=== PATIENT | female | born 1975 | race Caucasian/White ===

== ENCOUNTER 2017-09-08 14:44 | Emergency (ER) | payer MEDICAID, OTHER ==
[2017-09-08 14:55] VITALS: BP 131/83
--- NOTE | 2017-09-08 15:17 | ED Physician Documentation ---
PD HPI URI - Stated complaint Stated Complaint: COUGH/R EAR PX - Chief complaint Chief Complaint: Heent - History obtained from History obtained from: Patient - History of Present Illness Timing - onset: Today (has had some URI symptoms for the past 1-2 weeks, but with right ear pain abruptly today.) Timing duration: Days (1 day of the ear pain.) Timing details: Abrupt onset, Still present Associated symptoms: Ear pain (today), Nasal congestion (for 1-2 weeks), Rhinorrhea, Dry cough Contributing factors: No: Sick contact, Travel, Immunocompromised Similar symptoms before: Has not had sx before Recently seen: Not recently seen Review of Systems Constitutional: reports: Myalgias. denies: Fever, Chills, Fatigue Ears: reports: Loss of hearing, Ear pain. denies: Drainage/discharge, Tinnitus/ ringing Nose: reports: Rhinorrhea / runny nose, Congestion Throat: denies: Sore throat Respiratory: reports: Cough GI: denies: Nausea, Vomiting Skin: denies: Rash, Lesions Neurologic: denies: Focal weakness, Numbness, Altered mental status, Headache PD PAST MEDICAL HISTORY - Past Medical History Cardiovascular: None Respiratory: None Neuro: None Endocrine/Autoimmune: None - Present Medications Home Medications: Ambulatory Orders Medication Instructions Recorded Confirmed Amoxicillin 500 mg PO TID #20 capsule 09/08/17 Cetirizine [ZyrTEC] 10 mg PO DAILY #15 tablet 09/08/17 Dexamethasone [Decadron] 4 mg PO DAILY #5 tablet 09/08/17 Tramadol HCl 50 mg PO Q6H PRN #15 tablet 09/08/17 - Allergies Allergies/Adverse Reactions: Allergies Allergy/AdvReac Type Severity Reaction Status Date / Time No Known Drug Allergies Allergy Verified 09/08/17 14:55 PD ED PE NORMAL - Vitals Vital signs reviewed: Yes - General General: Alert and oriented X 3, No acute distress, Well developed/nourished - HEENT HEENT: No: Ears normal (left normal. right TM is very red without drainage. ) - Neck Neck: Supple, no meningeal sign, No adenopathy - Cardiac Cardiac: RRR, No murmur - Respiratory Respiratory: Clear bilaterally - Derm Derm: Normal color, Warm and dry, No rash Results - Vitals Vitals: Oxygen O2 Source Room air PD MEDICAL DECISION MAKING - ED course Complexity details: considered differential, d/w patient Departure - Departure Disposition: 01 Home, Self Care Clinical Impression: Upper respiratory infection Qualifiers: URI type: unspecified URI Qualified Code(s): J06.9 - Acute upper respiratory infection, unspecified Otitis media Qualifiers: Otitis media type: suppurative Chronicity: acute Laterality: right Recurrence: not specified as recurrent Spontaneous tympanic membrane rupture: without spontaneous rupture Qualified Code(s): H66.001 - Acute suppurative otitis media without spontaneous rupture of ear drum, right ear Condition: Stable Record reviewed to determine appropriate education?: Yes Instructions: ED Otitis Media Acute Adult Follow-Up: Ron Lundberg MD [Primary Care Provider] - Prescriptions: Amoxicillin 500 mg PO TID #20 capsule Cetirizine [ZyrTEC] 10 mg PO DAILY #15 tablet Dexamethasone [Decadron] 4 mg PO DAILY #5 tablet Tramadol HCl 50 mg PO Q6H PRN #15 tablet PRN Reason: Pain Comments: Drink lots of fluids. Tylenol or ibuprofen if needed for pains. Add tramadol if needed for worse pain. Amoxicillin 3 times a day for a week for the ear infection. This may help if there is some bacterial part to the sinuses as well. Use cetirizine antihistamine and Decadron for inflammation as directed. This should help for all of the symptoms to decrease pressure and inflammation. Recheck if not improving over the next 2-3 days. Discharge Date/Time: 09/08/17 15:47
[2017-09-08] MEDS ORDERED: AMOXICILLIN 250 MG CAPSULE PO STA (15:26)
[2017-09-08] MEDS ORDERED: ACETAMINOPHEN 325 MG TABLET PO STA (15:26)
[2017-09-08] MEDS ORDERED: traMADol 50 MG TABLET PO STA (15:26)
[2017-09-08] MEDS ORDERED: DEXAMETHASONE 10 MG/ML VIAL PO STA (15:26)
== END 2017-09-08 15:47 | disposition home or self-care (01) ==
LOC: ED 14:44
DX: H66.001 Acute suppurative otitis media without spontaneous rupture of ear drum, right ear (principal); J06.9 Acute upper respiratory infection, unspecified
CPT/HCPCS: 99283; A9270

== ENCOUNTER 2018-10-23 21:10 | Emergency (ER) | payer OTHER ==
[2018-10-23] MEDS ORDERED: DEXAMETHASONE 10 MG/ML VIAL PO STA (21:51)
[2018-10-23] MEDS ORDERED: OSELTAMIVIR 75 MG CAPSULE PO STA (22:21)
--- NOTE | 2018-10-23 22:21 | ED Physician Documentation ---
PD HPI URI - Stated complaint Stated Complaint: COUGH/FEVER - Chief complaint Chief Complaint: Resp - History obtained from History obtained from: Patient, Family - History of Present Illness Timing - onset: How many weeks ago (3) Timing duration: Weeks (3) Timing details: Gradual onset, Still present Associated symptoms: Fever, Nasal congestion, Rhinorrhea, Dry cough, Dyspnea Improves by: Rest, Medication Worsened by: Activity Similar symptoms before: Has not had sx before Recently seen: Not recently seen - Additional information Additional information: 43-year-old female has had a cough for the past 3 weeks and just 2 days ago she suddenly developed fever muscle aches and pains excessive congestion and dyspnea. Review of Systems Constitutional: reports: Fever, Chills, Myalgias, Fatigue Eyes: denies: Decreased vision Ears: denies: Ear pain Nose: reports: Rhinorrhea / runny nose, Congestion Throat: denies: Sore throat Cardiac: denies: Chest pain / pressure, Palpitations Respiratory: reports: Dyspnea, Cough GI: denies: Abdominal Pain, Nausea, Vomiting : denies: Dysuria, Frequency PD PAST MEDICAL HISTORY - Past Medical History Cardiovascular: None Respiratory: None Endocrine/Autoimmune: None - Past Surgical History Past Surgical History: No - Present Medications Home Medications: Ambulatory Orders Medication Instructions Recorded Confirmed Amoxicillin 500 mg PO TID #20 capsule 09/08/17 Cetirizine [ZyrTEC] 10 mg PO DAILY #15 tablet 09/08/17 Dexamethasone [Decadron] 4 mg PO DAILY #5 tablet 09/08/17 Tramadol HCl 50 mg PO Q6H PRN #15 tablet 09/08/17 Oseltamivir [Tamiflu] 75 mg PO BID #10 capsule 10/23/18 - Allergies Allergies/Adverse Reactions: Allergies Allergy/AdvReac Type Severity Reaction Status Date / Time No Known Drug Allergies Allergy Verified 10/23/18 21:30 - Social History Does the pt smoke?: No Smoking Status: Never smoker Does the pt drink ETOH?: No Does the pt have substance abuse?: No - Immunizations Immunizations are current?: Yes - POLST Patient has POLST: No PD ED PE NORMAL - Vitals Vital signs reviewed: Yes (normal ) - General General: Alert and oriented X 3, Well developed/nourished, Other (nasal congestion is obvious) - HEENT HEENT: Atraumatic, PERRL, EOMI, Ears normal, Moist mucous membranes, Pharynx benign, Dentition benign - Neck Neck: Supple, no meningeal sign, No bony TTP - Cardiac Cardiac: RRR, No murmur - Respiratory Respiratory: No respiratory distress, Other (diminished breath sounds bilaterally ) - Abdomen Abdomen: Soft, Non tender - Back Back: No CVA TTP, No spinal TTP - Derm Derm: Normal color, Warm and dry, No rash - Extremities Extremities: No deformity, No edema - Neuro Neuro: Alert and oriented X 3, 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, No motor deficit, No sensory deficit, Normal speech Eye Opening: Spontaneous Motor: Obeys Commands Verbal: Oriented GCS Score: 15 - Psych Psych: Normal mood, Normal affect Results - Vitals Vitals: Vital Signs - 24 hr 10/23/18 21:28 Temperature 36.0 C L Heart Rate 89 Respiratory 18 Rate Blood Pressure 120/62 O2 Saturation 97 Oxygen O2 Source Room air - Labs Labs: Laboratory Tests 10/23/18 22:00 Influenza A (Rapid) POSITIVE H Influenza B (Rapid) Negative - Rads (name of study) chest 2 veiw Radiology: Prelim report reviewed (Impression: Mild airway thickening suggesting bronchitis/bronchiolitis. No superimposed pneumonia demonstrated.), EMP read indepedently, See rad report PD MEDICAL DECISION MAKING - ED course Complexity details: reviewed old records, reviewed results, re-evaluated patient, considered differential, d/w patient, d/w family ED course: 43-year-old female with cough for the past 3 weeks has clear TMs and clear pharynx and diminished breath sounds is positive for influenza. She is administered Dex Methasone 10 mg orally and 75 mg of Tamiflu. Departure - Departure Disposition: 01 Home, Self Care Clinical Impression: Influenza A Condition: Stable Instructions: ED Flu, Medication: Tamiflu (Oseltamivir) Follow-Up: Ben Rodriguez DO [Primary Care Provider] - Prescriptions: Oseltamivir [Tamiflu] 75 mg PO BID #10 capsule Forms: Activity restrictions
--- NOTE | 2018-10-23 22:28 | XRAY Report ---
Reason: cough and fever lower lobe rhonchi Procedure Date: 10/23/2018 Accession Number: [id number] / [id number] Procedure: XR - Chest 2 View X-Ray CPT Code: 99812 FULL RESULT: EXAM: CHEST RADIOGRAPHY EXAM DATE: 10/23/2018 10:02 PM. CLINICAL HISTORY: Cough and fever lower lobe rhonchi. COMPARISON: XR ACUTE ABDOMEN SERIES 11/22/2006 7:04 AM. TECHNIQUE: 2 views. FINDINGS: Lungs/Pleura: There is no definite pneumothorax. Pulmonary interstitial prominence. No consolidation is noted. Mediastinum: Heart and mediastinal contours are unremarkable. Other: Right upper quadrant clips indicate prior cholecystectomy. IMPRESSION: Mild airway thickening suggesting bronchitis/bronchiolitis. No superimposed pneumonia demonstrated. RADIA
[2018-10-23 22:47] VITALS: BP 138/80
== END 2018-10-23 22:47 | disposition home or self-care (01) ==
LOC: ED 21:10
DX: J10.89 Influenza due to other identified influenza virus with other manifestations (principal)
CPT/HCPCS: 71046; 87275; 87276; 99283; A9270

== ENCOUNTER 2022-09-25 08:56 | Outpatient (CLI) | payer OTHER ==
--- NOTE | 2022-09-26 12:16 | Mammography Report ---
BILATERAL DIGITAL SCREENING MAMMOGRAM 3D/2D: 09/25/2022 CLINICAL: Routine screening. Comparison is made to exams dated: 08/21/2014 mammogram and 07/28/2014 mammogram - [facility]. There are scattered areas of fibroglandular density in both breasts (category b / 25%-50% glandular t issue). No significant masses, calcifications, or other findings are seen in either breast. There has been no significant interval change. IMPRESSION: NEGATIVE There is no mammographic evidence of malignancy. A 1 year screening mammogram is recommended. Based on the Tyrer Cuzick model (a risk assessment model) the patients lifetime risk is 14.6% and he r 10 year risk is 3.3%. According to the ACR, ACS, and NCCN guidelines, an annual breast MRI exam jimi ng with mammogram is recommended if the patients lifetime risk is 20% or greater. This exam was interpreted at Station ID: [id number]. NOTE: For mammograms, a report in lay terms will be sent to the patient. Approximately 15% of breast malignancies will not be visualized mammographically. In the management of a palpable breast mass, a negative mammogram must not discourage biopsy of a clinically suspicious lesion. Electronically Signed By: Antione Cooney M.D., jr/el:09/25/2022 11:27:43 ACR BI-RADS Category 1: Negative 3341F PARENCHYMAL PATTERN: (A) - The breast(s) demonstrate(s) scattered fibroglandular densities. BI-RADS CATEGORY: (1) - 1 RECOMMENDATION: (ANNUAL) - Recommend routine annual screening mammography. [id number] 1 year screening LATERALITY: (B)
== END 2022-09-25 08:57 | disposition home or self-care (01) ==
LOC: DI.N 08:56
PROVIDERS: ATTEND Student in an Organized Health Care Education/Training Program
DX: Z12.31 Encounter for screening mammogram for malignant neoplasm of breast (principal)

== ENCOUNTER 2022-10-01 06:18 | Outpatient (CLI) | payer OTHER ==
--- NOTE | 2022-10-01 13:34 | Ultrasound Report ---
PROCEDURE: Head or Neck Soft Tissue INDICATIONS: NECK LUMP TECHNIQUE: Real time scanning was performed of the neck region of interest, with image documentation . COMPARISON: None. FINDINGS: There is left submandibular region mass which likely represents a pathologic enlarged lymph node, measuring 2.9 x 1.7 x 1.7 cm. Adjacent to this is a benign-appearing lymph node with a fatty h ilum measuring 1.7 x 0.7 x 0.8 cm. IMPRESSION: Findings are suspicious for a possible malignant left submandibular lymph node. Comment: Recommend CT neck with and without contrast. Following this, consider ultrasound-guided FNA for tissue diagnosis. Reviewed by: Peter Macias MD on 10/01/2022 1:33 PM PST Approved by: Peter Macias MD on 10/01/2022 1:33 PM PST Station ID: [id number]
== END 2022-10-01 06:19 | disposition home or self-care (01) ==
LOC: DI 06:18
PROVIDERS: ATTEND Student in an Organized Health Care Education/Training Program
DX: R22.0 Localized swelling, mass and lump, head (principal)

== ENCOUNTER 2022-10-17 09:14 | Outpatient (CLI) | payer OTHER ==
[2022-10-17] MEDS ORDERED: iohexoL-300 100 ML VIAL ONE (09:24)
[2022-10-17] MEDS ORDERED: iohexoL-300 100 ML VIAL IVP ONE (09:48)
--- NOTE | 2022-10-17 14:35 | CT Report ---
PROCEDURE: CT neck with contrast INDICATIONS: SUBMANDIBULAR LUMP CONTRAST: 100ml omni 300 TECHNIQUE: After the administration of intravenous contrast, 3.0 mm axial sections acquired from the sella to th e aortic arch. 3 mm thick coronal reformats were generated. For radiation dose reduction, the foll owing was used: automated exposure control, adjustment of mA and/or kV according to patient size. COMPARISON: None. FINDINGS: Image quality: Excellent. Lymph nodes: No enlarged lymph nodes seen throughout the neck. Vessels: Visualized vasculature appears patent. Neck spaces: The oropharynx, nasopharynx, and pharynx demonstrate no mucosal lesions. The vocal cor ds, false vocal cords, pyriform sinuses, epiglottis, vallecula, and tongue base all appear normal. E xtramucosal spaces appear unremarkable. Glands: Within the inferior aspect of the left parotid, there is a solid enhancing nodule measuring 2 .7 x 1.9 x 1.8 cm. Additional smaller nodules measuring 5-6 mm noted in the superior portion of both the left and right parotid, probably reflecting intraparotid lymph nodes. Miscellaneous: Visualized brain and orbits appear normal. Lung apices appear clear. Superficial so ft tissues appear normal. Bones: No suspicious bony lesions. Visualized sinuses and mastoids appear unremarkable. IMPRESSION: Left-sided parotid nodule. Differential includes pleomorphic adenoma, Burnet's tumor or other primar y salivary gland tumor. Advise ultrasound-guided percutaneous biopsy Reviewed by: Mundo Hernandez MD on 10/17/2022 1:34 PM AKST Approved by: Mundo Hernandez MD on 10/17/2022 1:34 PM AKST Station ID: [id number]
== END 2022-10-17 09:15 | disposition home or self-care (01) ==
LOC: DI 09:14
PROVIDERS: ATTEND Student in an Organized Health Care Education/Training Program
DX: K11.8 Other diseases of salivary glands (principal); R22.0 Localized swelling, mass and lump, head
CPT/HCPCS: 36415; 70491; 80053; Q9967

== ENCOUNTER 2022-10-17 09:15 | Outpatient (CLI) | payer OTHER ==
[2022-10-17 09:37] LABS: ALBUMIN 4.1 g/dL (3.2-5.5); ALBUMIN/GLOBULIN RATIO 1.1 (1.0-2.2); BILIRUBIN,TOTAL 0.7 mg/dL (0.2-1.0); CALCIUM 9.3 mg/dL (8.5-10.3); CREATININE 0.6 mg/dL (0.4-1.0); POTASSIUM 4.1 mmol/L (3.5-5.0); TOTAL PROTEIN 7.7 g/dL (6.7-8.2)
== END 2022-10-17 09:16 | disposition home or self-care (01) ==
LOC: LAB 09:15
PROVIDERS: ATTEND Student in an Organized Health Care Education/Training Program
DX: R22.0 Localized swelling, mass and lump, head (principal)
CPT/HCPCS: 36415; 80053